=== PATIENT | female | born 1970 | race Caucasian/White ===

== ENCOUNTER 2018-10-04 09:47 | Emergency (ER) | payer BC ==
[2018-10-04] MEDS ORDERED: Sodium Chloride 0.9% 10 ML Syringe FLUSH PRN (10:08)
[2018-10-04 10:45] LABS: ANION GAP 12.6; CHLORIDE,CL 104 mmol/L (101-111); SODIUM,NA 136 mmol/L (135-145)
[2018-10-04] MEDS ORDERED: Sodium Chloride 0.9% 1,000 ML IV ONE (10:48)
--- NOTE | 2018-10-04 11:08 | CT ---
Clinical history: 47-year-old female emergency department complaining of syncopal episodes. Rule out intracranial abnormality. Scan technique: Volume acquisition of data emergency unenhanced CT scan of the head and brain obtained with the patient was lying supine on the Siemens multi slice scanner [place], [place]. All data archived in the PACS system for storage, reformatting axial/sagittal/coronal planes and study (bone/brain windows). Interpretation: Negative exam. 1. Symmetric clear pneumatization of the paranasal and mastoid sinuses. 2. Uniformly thick bony calvarium without sign of pathologic skeletal lesion, skull fracture, underlying brain contusion or epidural/subdural hematoma. 3. Symmetric khan-white matter pattern with underlying mirror-image normal ventricular system. No hydrocephalus. 4. No supratentorial or posterior fossa mass lesion. Cerebellum and brainstem unremarkable. 5. No focal areas of ischemic infarct or encephalomalacia. No sign of acute intracerebral/intraventricular/subarachnoid bleed.
--- NOTE | 2018-10-04 11:41 | EDM.PDOC ---
Scribed by Monica Payne 10/04/18 [id number] for Fadumo Glez NP ED HPI GENERAL MEDICAL PROBLEM - General Chief Complaint: Syncope Stated Complaint: BEEN FAINTING Time Seen by Provider: 10/04/18 10:09 Source of Information: Reports: Patient, Family, RN, RN Notes Reviewed History Limitations: Reports: No Limitations - History of Present Illness INITIAL COMMENTS - FREE TEXT/NARRATIVE: Patient presented to ER with complaint of syncopal episodes this morning. It occurred 3 times today. She hit her head twice today. States it began with an upset stomach this morning. Incontinent of urine out for quite some with one episode. She has had diarrhea, cold and clammy, fever, chills, visual disturbance only with the episodes. There has been no vomiting, chest pain, shortness of breath and head. She has had recent had abnormal vaginal bleeding for 3 months. Onset: Today Severity: Moderate Improves with: Reports: None Worsens with: Reports: None Associated Symptoms: Reports: No Other Symptoms - Related Data Allergies Allergy/AdvReac Type Severity Reaction Status Date / Time No Known Allergies Allergy Verified 10/04/18 09:57 Home Meds: Home Meds . [No Known Home Meds] 10/04/18 [History] Past Medical History Cardiovascular History: Reports: Syncope Social & Family History - Tobacco Use Smoking Status *Q: Never Smoker Second Hand Smoke Exposure: No - Recreational Drug Use Recreational Drug Use: No ED ROS GENERAL - Review of Systems Review Of Systems: ROS reveals no pertinent complaints other than HPI. - Physical Exam Exam: See Below Exam Limited By: No Limitations General Appearance: Alert, WD/WN, No Apparent Distress Eye Exam: Bilateral Eye: EOMI, Normal Inspection, PERRL Ears: Normal External Exam, Normal Canal, Hearing Grossly Normal, Normal TMs Nose: Normal Inspection, Normal Mucosa, No Blood Throat/Mouth: Normal Inspection, Normal Lips, Normal Teeth, Normal Gums, Normal Oropharynx, Normal Voice, No Airway Compromise Head Exam: Atraumatic, Normocephalic Neck: Normal Inspection, Supple, Non-Tender, Full Range of Motion Respiratory/Chest: No Respiratory Distress, Lungs Clear, Normal Breath Sounds, No Accessory Muscle Use, Chest Non-Tender Cardiovascular: Normal Peripheral Pulses, Regular Rate, Rhythm, No Edema, No Gallop, No JVD, No Murmur, No Rub GI/Abdominal: Normal Bowel Sounds, Tender (epigastric.) (Female) Exam: Deferred Rectal (Female) Exam: Deferred Neuro Exam (Abbreviated): Alert, Oriented, CN II-XII Intact, Normal Cognition, Normal Gait, Normal Reflexes, No Motor/Sensory Deficits Back Exam: Normal Inspection, Full Range of Motion, NT Extremities: Normal Inspection Psychiatric: Normal Affect, Normal Mood Skin Exam: Other (1cm laceration right scalp/hair line. ) EKG INTERPRETATION EKG Date: 10/04/18 Time: 10:16 Rhythm: Other (sinus rhythm) Rate (Beats/Min): 79 EKG Interpretation Comments: Borderline T wave abnormalities. Course - Vital Signs Last Recorded V/S: Last Vital Signs Temp 100.7 F H 10/04/18 09:50 Pulse 86 10/04/18 09:50 Resp 18 10/04/18 09:50 BP 109/60 10/04/18 09:50 Pulse Ox 100 10/04/18 09:50 Orthostatic Blood Pressure [ 109/64 Standing] Orthostatic Blood Pressure [ 107/66 Sitting] Orthostatic Blood Pressure [ 106/56 Supine] - Orders/Labs/Meds Orders: Active Orders 24 hr Category Date Time Status EKG Documentation Completion [RC] STAT Care 10/04/18 10:08 Active Peripheral IV Care [RC] . DIRECTED Care 10/04/18 10:09 Active Sodium Chloride 0.9% [Normal Saline] 1,000 ml Med 10/04/18 10:48 Active IV .BOLUS Sodium Chloride 0.9% [Saline Flush] Med 10/04/18 10:08 Active 10 ml FLUSH ASDIRECTED PRN Peripheral IV Insertion Adult [OM.PC] Stat Oth 10/04/18 10:08 Ordered Medication Orders Sodium Chloride (Normal Saline) 1,000 mls @ 999 mls/hr IV .BOLUS ONE Stop: 10/04/18 11:48 Last Admin: 10/04/18 10:52 Dose: 999 mls/hr Sodium Chloride (Saline Flush) 10 ml FLUSH ASDIRECTED PRN PRN Reason: Keep Vein Open Last Admin: 10/04/18 10:23 Dose: 10 ml Labs: Laboratory Tests 10/04/18 10/04/18 10/04/18 Range/Units 10:20 10:20 11:21 WBC 9.7 (5.0-10.0) 10^3/uL RBC 4.61 (4.2-5.4) 10^6/uL Hgb 14.1 (12.0-16.0) g/dL Hct 42.4 (37.0-47.0) % MCV 92.0 (80-100) fL MCH 30.6 (27.0-34.0) pg MCHC 33.3 (33.0-35.0) g/dL Plt Count 195 (150-450) 10^3/uL Neut % (Auto) 93.3 H (42.2-75.2) % Lymph % (Auto) 3.5 L (20.5-50.1) % [place] % (Auto) 2.7 (2-8) % Eos % (Auto) 0.4 L (1.0-3.0) % Baso % (Auto) 0.1 (0.0-1.0) % Sodium 136 (135-145) mmol/L Potassium 3.6 (3.6-5.0) mmol/L Chloride 104 (101-111) mmol/L Carbon Dioxide 23.0 (21.0-31.0) mmol/L Anion Gap 12.6 BUN 11 (7-18) mg/dL Creatinine 0.7 (0.6-1.3) mg/dL Est Cr Clr Drug Dosing 96.62 mL/min Estimated GFR (MDRD) > 60 BUN/Creatinine Ratio 15.71 Glucose 103 (74-105) mg/dL Calcium 9.0 (8.4-10.2) mg/dl Total Bilirubin 1.1 H (0.2-1.0) mg/dL AST 24 (10-42) IU/L ALT 17 (10-60) IU/L Alkaline Phosphatase 39 L (42-121) IU/L Troponin I < 0.02 (0.00-0.02) ng/ml Total Protein 6.9 (6.7-8.2) g/dl Albumin 3.8 (3.2-5.5) g/dl Globulin 3.1 Albumin/Globulin Ratio 1.23 Urine Color Yellow (YELLOW) Urine Appearance Clear (CLEAR) Urine pH 5.0 (5.0-9.0) Ur Specific [place] <= 1.005 (1.005-1.030) Urine Protein Negative (NEGATIVE) Urine Glucose (UA) Negative (NEGATIVE) Urine Ketones Negative (NEGATIVE) Urine Occult Blood Negative (NEGATIVE) Urine Nitrite Negative (NEGATIVE) Urine Bilirubin Negative (NEGATIVE) Urine Urobilinogen 0.2 (0.2-1.0) mg/dL Ur Leukocyte Esterase Negative (NEGATIVE) Urine Opiates Screen (NEGATIVE) Ur Oxycodone Screen (NEGATIVE) Urine Methadone Screen (NEGATIVE) Ur Barbiturates Screen (NEGATIVE) U Tricyclic Antidepress (NEGATIVE) Ur Phencyclidine Scrn (NEGATIVE) Ur Amphetamine Screen (NEGATIVE) U Methamphetamines Scrn (NEGATIVE) Urine MDMA Screen (NEGATIVE) U Benzodiazepines Scrn (NEGATIVE) Urine Cocaine Screen (NEGATIVE) U Marijuana (THC) Screen (NEGATIVE) Ethyl Alcohol < 5 mg/dL 10/04/18 Range/Units 11:21 WBC (5.0-10.0) 10^3/uL RBC (4.2-5.4) 10^6/uL Hgb (12.0-16.0) g/dL Hct (37.0-47.0) % MCV (80-100) fL MCH (27.0-34.0) pg MCHC (33.0-35.0) g/dL Plt Count (150-450) 10^3/uL Neut % (Auto) (42.2-75.2) % Lymph % (Auto) (20.5-50.1) % [place] % (Auto) (2-8) % Eos % (Auto) (1.0-3.0) % Baso % (Auto) (0.0-1.0) % Sodium (135-145) mmol/L Potassium (3.6-5.0) mmol/L Chloride (101-111) mmol/L Carbon Dioxide (21.0-31.0) mmol/L Anion Gap BUN (7-18) mg/dL Creatinine (0.6-1.3) mg/dL Est Cr Clr Drug Dosing mL/min Estimated GFR (MDRD) BUN/Creatinine Ratio Glucose (74-105) mg/dL Calcium (8.4-10.2) mg/dl Total Bilirubin (0.2-1.0) mg/dL AST (10-42) IU/L ALT (10-60) IU/L Alkaline Phosphatase (42-121) IU/L Troponin I (0.00-0.02) ng/ml Total Protein (6.7-8.2) g/dl Albumin (3.2-5.5) g/dl Globulin Albumin/Globulin Ratio Urine Color (YELLOW) Urine Appearance (CLEAR) Urine pH (5.0-9.0) Ur Specific [place] (1.005-1.030) Urine Protein (NEGATIVE) Urine Glucose (UA) (NEGATIVE) Urine Ketones (NEGATIVE) Urine Occult Blood (NEGATIVE) Urine Nitrite (NEGATIVE) Urine Bilirubin (NEGATIVE) Urine Urobilinogen (0.2-1.0) mg/dL Ur Leukocyte Esterase (NEGATIVE) Urine Opiates Screen Negative (NEGATIVE) Ur Oxycodone Screen Negative (NEGATIVE) Urine Methadone Screen Negative (NEGATIVE) Ur Barbiturates Screen Negative (NEGATIVE) U Tricyclic Antidepress Negative (NEGATIVE) Ur Phencyclidine Scrn Negative (NEGATIVE) Ur Amphetamine Screen Negative (NEGATIVE) U Methamphetamines Scrn Negative (NEGATIVE) Urine MDMA Screen Negative (NEGATIVE) U Benzodiazepines Scrn Negative (NEGATIVE) Urine Cocaine Screen Negative (NEGATIVE) U Marijuana (THC) Screen Negative (NEGATIVE) Ethyl Alcohol mg/dL Meds: Medications Generic Name Dose Route Start Last Admin Trade Name Freq PRN Reason Stop Dose Admin Sodium Chloride 1,000 mls @ 999 mls/hr 10/04/18 10:48 10/04/18 10:52 Normal Saline IV 10/04/18 11:48 999 mls/hr .BOLUS ONE Administration Sodium Chloride 10 ml 10/04/18 10:08 10/04/18 10:23 Saline Flush FLUSH 10 ml ASDIRECTED PRN Administration Keep Vein Open - Radiology Interpretation Free Text/Narrative:: Head CT: Negative See rad report Departure - Departure Time of Disposition: 11:39 Disposition: Home, Self-Care 01 Condition: Fair Clinical Impression: Syncope Qualifiers: Syncope type: unspecified Qualified Code(s): R55 - Syncope and collapse - Discharge Information *PRESCRIPTION DRUG MONITORING PROGRAM REVIEWED*: No *COPY OF PRESCRIPTION DRUG MONITORING REPORT IN PATIENT DARÍO: No Instructions: Syncope, [id number] Forms: ED Department Discharge Additional Instructions: Rest Drink plenty of fluids Follow up with your primary care facility next week Return to the ER with any further problems - My Orders Last 24 Hours: My Active Orders 10/04/18 10:08 EKG Documentation Completion [RC] STAT Sodium Chloride 0.9% [Saline Flush] 10 ml FLUSH ASDIRECTED PRN Peripheral IV Insertion Adult [OM.PC] Stat 10/04/18 10:09 Peripheral IV Care [RC] . DIRECTED 10/04/18 10:48 Sodium Chloride 0.9% [Normal Saline] 1,000 ml IV .BOLUS - Assessment/Plan Last 24 Hours: My Active Orders 10/04/18 10:08 EKG Documentation Completion [RC] STAT Sodium Chloride 0.9% [Saline Flush] 10 ml FLUSH ASDIRECTED PRN Peripheral IV Insertion Adult [OM.PC] Stat 10/04/18 10:09 Peripheral IV Care [RC] . DIRECTED 10/04/18 10:48 Sodium Chloride 0.9% [Normal Saline] 1,000 ml IV .BOLUS I have read and agree with the documentation that has been completed regarding this visit. By signing this record, I attest that the documentation was completed in my physical presence and is an accurate record of the encounter.
== END 2018-10-04 11:47 | disposition home or self-care (01) ==
LOC: DL.ED 09:47
DX: R55 Syncope and collapse (principal)
CPT/HCPCS: 36415; 70450; 80053; 80305; 81003; 84484; 85025; 93005; 96360; 99284; G0480; J7030